=== PATIENT | male | born 1940 | race Caucasian/White ===

== ENCOUNTER 2016-08-07 06:50 | Day surgery (SDC) | payer OTHER, MEDICARE ==
[~2016-08-07 06:50] MED LIST: LIDOCAINE W/ SODIUM BICARB 0.5 ML SYR ONE; Lactated Ringers 1,000 ML PRIMARY IV ONE; ceFAZolin Inj 2gm (Premix) 50 ML IV ONE
[2016-08-07] MEDS ORDERED: BUPivacaine Inj 0.5% PF (5mg/ml) 10ml vial ONE ×2 (07:53→11:18)
[2016-08-07] MEDS ORDERED: ceFAZolin 1 GM VIAL ONE (08:11)
[2016-08-07] MEDS ORDERED: LIDOCAINE 2% 20 MG/ML - 20 ML VIAL ONE (08:34)
[2016-08-07] MEDS ORDERED: MIDAZOLAM 5 MG/1 ML ONE (08:36)
[2016-08-07] MEDS ORDERED: fentaNYL Inj 100 MCG/2 ML VIAL ONE (08:36)
[2016-08-07] MEDS ORDERED: KETOROLAC 30 MG/1 ML VIAL ONE (11:26)
[2016-08-07] MEDS ORDERED: NORMAL SALINE 10 ML SYRINGE FLUSH IVP PRN (11:44)
--- NOTE | 2016-08-07 12:03 | GEN.OPNOTE ---
Operative Report Surgeon: Dr. 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 Postoperative Diagnosis: same Procedure: Extensor tendon release of digits 2 through 4 on bilateral feet. Exostectomy IP joint right great toe. Estimated Blood Loss (mL): 2 Description of Procedure: Under mild sedation the patient was wheeled into the operating room placed on the operating table in supine position a well-padded pneumatic ankle tourniquet was placed on bilateral ankles. A timeout was then performed. The foot bilateral feet were then injected with a one-to-one mixture of 2% lidocaine mixed with 0.5% Marcaine. Once this had been accomplished the feet were prepped scrubbed and draped in the usual aseptic manner. Attention was directed the right foot where Esmarch bandage was used to exsanguinate the foot and ankle tourniquet was inflated to 250 mmHg. Attention was then directed the dorsal aspect of the right foot. Where 1-2 cm incisions were made over the MP joint of the second third fourth and fifth digits. The incision was carried down to the level of the extensor tendon where the extensor tendon was released and also the extensor digitorum brevis was also released on digits 2 through 5. Subcutaneous tissues were then reapproximated at each joint with 4-0 Vicryl. Skin was re-coapted with 4-0 nylon. Attention was directed to the dorsal aspect of the IP joint of the right great toe where incision approximately 2 cm in length was made and carried down to level level of the IP joint the dorsal exostosis on the has a proximal phalanx was then transected with an oscillating bone saw. The surgery site was then closed the capsule was closed with 4-0 Vicryl and the skin with 4-0 nylon. The ankle tourniquet was then deflated. Local anesthesia consisting of 0.5% Marcaine approximately 10 mL was injected proximal and about the surgery sites of the right foot. Bandage consisting of gauze Kerlix and Coban was then applied. The procedure helped reduce the dorsal bow strung construct fracture on digits 2 through 5. Attention was acted to the left foot Esmarch bandage was used to exsanguinate the foot and ankle tourniquet was inflated to 250 mmHg. attention then directed was then directed the dorsal aspect of the left foot. Where 1-2 cm incisions were made over the MP joint of the second third fourth and fifth digits. The incision was carried down to the level of the extensor tendon where the extensor tendon was released and also the extensor digitorum brevis was also released on digits 2 through 5. Subcutaneous tissues were then reapproximated at each joint with 4-0 Vicryl. Skin was re-coapted with 4-0 nylon. The ankle tourniquet was deflated. Local anesthesia consisting of 0.5% Marcaine approximately 10 mL was injected proximal and about the surgery sites of the right foot. The procedure helped reduce the dorsal bow strung construct fracture on digits 2 through 5. Bandage consisting of gauze Kerlix and Coban was then applied.
[2016-08-07] MEDS ORDERED: HYDROcodone-APAP 7.5 MG-325 MG TABLET PO ONE ×2 (12:13→12:23)
[2016-08-07 13:45] VITALS: RESP 16
[2016-08-07 13:48] VITALS: TEMP 97.9
== END 2016-08-07 12:55 | disposition home or self-care (01) ==
LOC: SDSC 06:50
PROVIDERS: ATTEND Podiatrist Foot & Ankle Surgery
DX: M20.41 Other hammer toe(s) (acquired), right foot (principal); M89.9 Disorder of bone, unspecified
CPT/HCPCS: 28234; 28285 ×6; J0690; J1885; J2704; J3010; J2001; J2250; J3490; J7120